=== PATIENT | female | born 1970 | race Caucasian/White ===

== ENCOUNTER 2017-01-10 21:29 | Emergency (ER) | payer OTHER ==
--- NOTE | 2017-01-10 21:42 | ED Physician Documentation ---
PD HPI LOWER EXT INJURY - Stated complaint Stated Complaint: L FOOT PX - Chief complaint Chief Complaint: Ext Problem - History obtained from History obtained from: Patient - History of Present Illness PD HPI LOW EXT INJURY LOCATION: Left (She fell yesterday, and in the process hit her left foot on a wall. She complains of pain over the medial forefoot in the arch. She is able to walk and bear weight. 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: Tubal ligation, Hysterectomy - Present Medications Home Medications: Ambulatory Orders Medication Instructions Recorded Confirmed Esomeprazole Magnesium [Nexium] 80 mg PO DAILY 01/10/17 01/10/17 Fexofenadine HCl [Sarah Allergy] 180 mg PO DAILY 01/10/17 01/10/17 Montelukast [Singulair] 10 mg PO DAILY 01/10/17 01/10/17 - Allergies Allergies/Adverse Reactions: Allergies Allergy/AdvReac Type Severity Reaction Status Date / Time iodine AdvReac Severe Hives Verified 05/11/14 21:54 Penicillins AdvReac Severe Hives Verified 05/11/14 21:53 Sulfa (Sulfonamide AdvReac Severe Hives Verified 05/11/14 21:54 Antibiotics) - Social History Does the pt smoke?: No Smoking Status: Never smoker Does the pt drink ETOH?: No Does the pt have substance abuse?: No - Immunizations Immunizations are current?: Yes PD ED PE NORMAL - Vitals Vital signs reviewed: Yes - General General: Alert and oriented X 3, No acute distress - Extremities Extremities: Other (Tenderness of the left foot seems focused in the area of the proximal dorsal and medial midfoot with some swelling there. No tenderness of the arch of the toes. No ankle or proximal fibular tenderness. There is no discoloration. Good pedal pulses.) - Neuro Neuro: Alert and oriented X 3, Normal speech - Psych Psych: Normal mood, Normal affect Results - Vitals Vitals: Vital Signs - 24 hr 01/10/17 21:31 Temperature 36.2 C L Heart Rate 93 Respiratory 18 Rate Blood Pressure 142/91 H O2 Saturation 96 Oxygen O2 Source Room air - Rads (name of study) L foot 3v Radiology: EMP read contemporaneously (Initial read was negative, I called Dr. Dupont and carlee his attention to the proximal second metatarsal on the oblique view and he agrees there may be a nondisplaced fracture there.) Procedures - Splint (location) Left foot Splint applied by: Tech Type of splint: Fiberglass, Short leg, Posterior Other: Patient tolerated well, No complications, Neurovascular intact, Crutches provided PD MEDICAL DECISION MAKING - ED course ED course: Initial read of the x-ray was negative, but I do believe after review that she probably has a nondisplaced proximal second metatarsal fracture and was placed in a splint and made nonweightbearing to follow up with orthopedics. Departure - Departure Disposition: 01 Home, Self Care Clinical Impression: Fracture of second metatarsal bone of left foot Qualifiers: Encounter type: initial encounter Fracture type: closed Fracture alignment: nondisplaced Qualified Code(s): S92.325A - Nondisplaced fracture of second metatarsal bone, left foot, initial encounter for closed fracture Condition: Good Record reviewed to determine appropriate education?: Yes Instructions: ED Fx Foot, ED Crutch Walking Comments: Call Dr. Bales's office tomorrow to arrange a follow up appointment. Do not walk or bear weight on the foot until he advises that it is safe to do so. Take the copy of the x-ray on CT with you to that appointment. Tylenol as needed for pain. Keep it elevated. Ice it through the splint. Your blood pressure was elevated today on check in to the emergency department. This does not mean that you have hypertension, it is a common phenomenon to check into the emergency department and have elevated blood pressure. I recommend that you see your primary care physician within the week to have it rechecked when you're feeling better.
--- NOTE | 2017-01-10 22:33 | XRAY Preliminary Report ---
Exam: XR Foot 3 View LT IMPRESSION: Soft tissue swelling without displaced fracture. [facility] SITE ID: [id number]
--- NOTE | 2017-01-10 22:36 | XRAY Report ---
EXAM: LEFT FOOT RADIOGRAPHY EXAM DATE: 01/10/2017 10:02 PM. CLINICAL HISTORY: Foot injury, metatarsal region pain. COMPARISON: None. TECHNIQUE: 3 views. FINDINGS: Bones: There is a large plantar calcaneal spur. No displaced fracture is answered. Subchondral cyst n oted within the distal talus. Old injury to the medial malleolus with adjacent small well-corticated ossific fragment. Joints: No dislocations. There is mild first MTP degenerative joint disease. Soft Tissues: There is moderate soft tissue swelling, predominantly about the hindfoot. Dorsal soft t issue swelling at the foot as well. IMPRESSION: Soft tissue swelling without displaced fracture. [facility] Referring Provider Line: [phone] SITE ID: [id number]
[2017-01-10 23:00] VITALS: BP 136/89
== END 2017-01-10 23:00 | disposition home or self-care (01) ==
LOC: ED 21:29
DX: S92.325A Nondisplaced fracture of second metatarsal bone, left foot, initial encounter for closed fracture (principal); W01.198A Fall on same level from slipping, tripping and stumbling with subsequent striking against other object, initial encounter; R03.0 Elevated blood-pressure reading, without diagnosis of hypertension
CPT/HCPCS: 29515; 99283

== ENCOUNTER 2017-03-19 06:07 | Day surgery (SDC) | payer OTHER ==
[2017-03-19] MEDS ORDERED: CLINDAMYCIN 600 MG/50 ML 50 ML IV ONE (06:34)
[2017-03-19] MEDS ORDERED: ACETAMINOPHEN 1,000 MG/100 ML 100 ML IV ONE (06:34)
[2017-03-19] MEDS ORDERED: LACTATED RINGERS 1,000 ML IV ONE (06:41)
[2017-03-19] MEDS ORDERED: SCOPOLAMINE PATCH TOP ONE (07:13)
[2017-03-19] MEDS ORDERED: LIDOCAINE-MPF 0.5% 50 ML VIAL IM ONE (08:00)
[2017-03-19] MEDS ORDERED: fentaNYL 100 MCG/2 ML VIAL IVP ONE (08:00)
[2017-03-19] MEDS ORDERED: MIDAZOLAM 2 MG/2 ML VIAL IVP ONE (08:00)
[2017-03-19] MEDS ORDERED: PROPOFOL 200 MG/20 ML VIAL IVP ONE (08:00)
[2017-03-19] MEDS ORDERED: oxyCOD/ACETAMIN 5 MG/325 MG TABLET PO ONE ×2 (08:51→09:28)
[2017-03-19 09:24] VITALS: BP 122/63
--- NOTE | 2017-03-22 14:38 | OPERATIVE REPORT ---
ID: [id number] DATE OF SURGERY: 03/19/2017 00:00:00 PREOPERATIVE DIAGNOSIS: Right carpal tunnel syndrome. POSTOPERATIVE DIAGNOSIS: Right carpal tunnel syndrome. NAME OF PROCEDURE: Open right carpal tunnel release. SURGEON: Shalonda Stubbs MD HEAD MVA REACTOR OPERATOR: Calderon Bales DO ANESTHESIOLOGIST: Nohemi Victoria CRNA CIRCULATING NURSE: German Tan RN MACHINE TECHNICIAN: 1. Ene Balbuena RN, BSN 2. María Metcalf CST ANESTHESIA: Neda block to right arm. INTRAVENOUS FLUIDS: 850 mL lactated Ringer's. ESTIMATED BLOOD LOSS: 1 mL. ANTIBIOTICS: Cleocin 600 mg IV. TOURNIQUET: To right arm at 275 mmHg for 41 minutes. IMPLANTS: None. SPECIMENS: None. COMPLICATIONS: None. INDICATIONS: This is a 46-year-old female with prolonged history of right median nerve numbness and tingling as well as pain that had temporary improvement with corticosteroid injection; however, symptoms returned. Risks, benefits, and indications of treatment options were discussed with the patient to include risks of surgery including infection, bleeding, damage to neurovascular structures, need for additional procedures, persistent symptoms, pillar pain, deep venous thrombosis, pulmonary embolism, loss of limb and loss of life. All questions were answered, the patient elected to proceed with surgery and informed consent was obtained. PROCEDURE: The patient was met in the preoperative holding area on the morning of surgery where we confirmed we had the correct patient, were planning to do the correct procedure, and had the correct extremity, which was the right upper extremity identified. Prior to the patient receiving any medications, the operating extremity was initialed by the surgeon. The patient was then brought back to the operating room in stable condition and placed supine on the operating room table. All bony prominences were well-padded and sequential compression devices were placed on the bilateral lower extremities. A tourniquet was applied to the right forearm and the right forearm was exsanguinated, and Anesthesia then performed a [place] block utilizing lidocaine. The right upper extremity was then prepped and draped in the usual sterile fashion. After final draping, additional ChloraPrep was utilized on the operative site. Three minutes were allowed to elapse to enable the ChloraPrep to dry. We held a surgical timeout where we confirmed we had the correct patient , planning to do the correct procedure, and had the correct extremity which was the right upper extremity identified. We also confirmed that the patient received preoperative antibiotics, that all necessary equipment was in the room and confirmed sterile, and that no members of the team had any concerns. We began by making an incision over the volar aspect of the wrist in line with the creases. After sharply incising the skin, we utilized bipolar cautery to maintain hemostasis as we dissected through the subcuticular layer. We identified the palmar fascia and sharply incised this. We then identified the transverse carpal tunnel ligament. We placed a Black underneath the transverse carpal ligament and sharply transected the transverse carpal ligament utilizing the Black to ensure that the nerve was not cut. After incising the transverse carpal ligament, we identified the median nerve, which was bulbous in appearance. We confirmed that the transverse carpal ligament had been fully released both distally and proximally. We then thoroughly irrigated the wound. We then closed the wound with 3-0 nylon in a horizontal mattress fashion. We then dressed the wound with sterile Xeroform, plain gauze, and placed the patient into a well-padded volar resting splint. All sponge counts and needle counts were correct at the conclusion of the case. The patient was taken back to the preoperative hold area after the conclusion of the case. POSTOPERATIVE PLAN: The patient will remain in her splint until she is seen back in 10 days for first postoperative appointment at which time we will remove her sutures and begin her therapy. Report edited and signed 03/29/2017 by Shalonda Stubbs MD. JOB #: [id number] EXT JOB #:[id number] [email or web address]
== END 2017-03-19 06:08 | disposition home or self-care (01) ==
LOC: SDS 06:07
PROVIDERS: ATTEND Orthopaedic Surgery
PROC: 01N50ZZ Release Median Nerve, Open Approach (ICD-10-PCS; principal; 2017-03-19 07:30)
DX: G56.01 Carpal tunnel syndrome, right upper limb (principal); K21.9 Gastro-esophageal reflux disease without esophagitis; J45.909 Unspecified asthma, uncomplicated; E66.3 Overweight; Z68.41 Body mass index [BMI] 40.0-44.9, adult
CPT/HCPCS: 64721; A9270; J0131; J3490; J7120

== ENCOUNTER 2017-04-21 20:18 | Emergency (ER) | payer OTHER ==
--- NOTE | 2017-04-21 21:08 | ED Physician Documentation ---
PD HPI HEADACHE - Stated complaint Stated Complaint: MIGRAINE - Chief complaint Chief Complaint: Neuro - History obtained from History obtained from: Patient, Family - History of Present Illness Timing - onset: Yesterday Timing - onset during: Rest Timing - duration: Days (1) Timing - details: Gradual onset Pain level max: 10 Pain level now: 10 Location: Back, Right Quality: Throbbing, Aching. No: Thunderclap Associated symptoms: Nausea, Vomiting. No: Fever, Stiff neck, Weakness, Numbness, Syncope, Seizure, Eye pain, Vision changes Improved by: Rest, Dark room Worsened by: Light, Noise, Moving Contributing factors: No: Anticoagulated, Possible carbon monoxide Similar symptoms before: Diagnosis (chronic migraines) Recently seen: Not recently seen - Additional information Additional information: similar to prior migraines. took motrin and tylenol today. Fioricet yesterday Review of Systems Ten Systems: 10 systems reviewed and negative Constitutional: denies: Fever, Chills Eyes: denies: Loss of vision, Decreased vision Ears: denies: Ear pain Nose: denies: Rhinorrhea / runny nose, Congestion Throat: denies: Sore throat Skin: denies: Rash Musculoskeletal: denies: Neck pain, Back pain Neurologic: denies: Focal weakness, Numbness, Seizure, Confused, Altered mental status, Head injury PD PAST MEDICAL HISTORY - Past Medical History Cardiovascular: None Respiratory: Asthma, Other Neuro: Headache/migraine Endocrine/Autoimmune: Other GI: GERD : None HEENT: None Psych: None Musculoskeletal: Other Derm: Other - Past Surgical History Past Surgical History: Yes General: Cholecystectomy, 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: Tubal ligation, Hysterectomy - Present Medications Home Medications: Ambulatory Orders Medication Instructions Recorded Confirmed Esomeprazole Magnesium [Nexium] 40 mg PO BID 01/10/17 04/21/17 Fexofenadine HCl [Sarah Allergy] 180 mg PO DAILY 01/10/17 04/21/17 Montelukast [Singulair] 10 mg PO DAILY 01/10/17 04/21/17 Albuterol Sulf [Ventolin Hfa 1 - 2 puffs INH Q4HR PRN 03/09/17 04/21/17 Inhaler] Fluticasone [Flonase] 1 sprays JOEL DAILY 03/09/17 04/21/17 Fluticasone/Salmeterol [Advair 1 each IH BID 03/09/17 04/21/17 250-50 Diskus] Ipratropium [Atrovent] 0.5 mg INH Q6H PRN 03/09/17 04/21/17 - Allergies Allergies/Adverse Reactions: Allergies Allergy/AdvReac Type Severity Reaction Status Date / Time iodine Allergy Severe Hives Verified 04/21/17 20:55 Penicillins Allergy Severe Hives Verified 04/21/17 20:55 Sulfa (Sulfonamide AdvReac Severe Hives Verified 04/21/17 20:55 Antibiotics) - Social History Does the pt smoke?: No Smoking Status: Never smoker Does the pt drink ETOH?: No Does the pt have substance abuse?: No - Immunizations Immunizations are current?: Yes PD ED PE NORMAL - Vitals Vital signs reviewed: Yes - General General: Alert and oriented X 3, No acute distress, Well developed/nourished, Other (darkened room, eyes closed) - HEENT HEENT: Atraumatic, PERRL, EOMI, Ears normal, Moist mucous membranes - Neck Neck: Supple, no meningeal sign, No bony TTP - Cardiac Cardiac: RRR, Strong equal pulses - Respiratory Respiratory: No respiratory distress, Clear bilaterally - Abdomen Abdomen: Soft, Non tender, Non distended - Derm Derm: Warm and dry - Extremities Extremities: No calf tenderness / cord - Neuro Neuro: Alert and oriented X 3, 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 She stated that she had had some success with Haldol in the past, therefore Haldol and Benadryl were given IM. This helped her headache, but did not resolve the symptoms, therefore an IV was started, Toradol and Compazine were given which did resolve her headache. She feels much better and would like to go home at this time. No evidence of subarachnoid hemorrhage, tumor, mass. Patient and family counseled regarding signs and symptoms for which I believe and urgent re-evaluation would be necessary. Patient with good understanding of and agreement to plan and is comfortable going home at this time This document was made in part using voice recognition software. While efforts are made to proofread this document, sound alike and grammatical errors may occur. Departure - Departure Disposition: 01 Home, Self Care Clinical Impression: Migraine Qualifiers: Migraine type: unspecified Status migrainosus presence: without status migrainosus Intractability: not intractable Qualified Code(s): G43.909 - Migraine, unspecified, not intractable, without status migrainosus Condition: Good Instructions: ED Headache Migraine Follow-Up: Eric Carter MD [Primary Care Provider] - As Needed Comments: Go home and rest today. Return if you worsen. Discharge Date/Time: 04/21/17 23:03
[2017-04-21] MEDS: HALOPERIDOL 5 MG/ML VIAL IM STA (21:18)
[2017-04-21] MEDS: diphenhydrAMINE INJ 50 MG/ML VIAL IM STA (21:22)
[2017-04-21] MEDS: KETOROLAC 60 MG/2 ML VIAL IVP STA (22:20)
[2017-04-21] MEDS ORDERED: KETOROLAC 30 MG/ML VIAL ONE (22:20)
[2017-04-21] MEDS: PROCHLORPERAZINE 10 MG/2 ML VIAL IVP STA (22:20)
[2017-04-21] MEDS ORDERED: PROCHLORPERAZINE 10 MG/2 ML VIAL ONE (22:20)
[2017-04-21 22:37] VITALS: BP 101/63
== END 2017-04-21 23:03 | disposition home or self-care (01) ==
LOC: ED 20:18
DX: G43.909 Migraine, unspecified, not intractable, without status migrainosus (principal)
CPT/HCPCS: 96372; 96374; 96375; 99283; 99284

== ENCOUNTER 2017-07-14 06:14 | Day surgery (SDC) | payer OTHER ==
[2017-07-14] MEDS ORDERED: LACTATED RINGERS 1,000 ML IV ONE ×2 (06:56→08:40)
[2017-07-14] MEDS ORDERED: CLINDAMYCIN 600 MG/50 ML 50 ML IV ONE (06:57)
[2017-07-14] MEDS ORDERED: ACETAMINOPHEN 1,000 MG/100 ML 100 ML IV ONE (06:57)
[2017-07-14] MEDS ORDERED: MIDAZOLAM 2 MG/2 ML VIAL IVP ONE (07:33)
[2017-07-14] MEDS ORDERED: fentaNYL 100 MCG/2 ML VIAL IVP ONE (07:33)
[2017-07-14] MEDS ORDERED: BUPIVACAINE 0.25% PF 30 ML VIAL SUBQ ONE ×2 (08:02)
[2017-07-14 09:13] VITALS: BP 116/89
--- NOTE | 2017-07-14 13:58 | OPERATIVE REPORT ---
DATE OF SURGERY: 07/14/2017 00:00:00 [facility] . PREOPERATIVE DIAGNOSIS: Left carpal tunnel syndrome. POSTOPERATIVE DIAGNOSIS: Left carpal tunnel syndrome. OPERATION PERFORMED: Left open carpal tunnel release. PRIMARY SURGEON: Shalonda Stubbs MD. PLASTIC MANAGER SURGEON: Dawit Chiu MD. ANESTHESIA PROVIDER: Nohemi Victoria CRNA. CIRCULATING NURSES 1. Franko Echevarria RN. 2. Calderon Victoria RN. SCRUB TECHNICIANS 1. Don Dai. 2. Gladys Valerio RN. ANESTHESIA: Neda block. INTRAVENOUS FLUIDS: 800 mL lactated Ringer's. ANTIBIOTICS: 600 mg of Cleocin. TOURNIQUET: Left forearm at 200 mmHg for 45 minutes. IMPLANTS: None. SPECIMENS: None. COMPLICATIONS: None. INDICATIONS FOR SURGERY: This is a 47-year-old female with left hand numbness, tingling, and pain that responded to treatment to include injections and night splinting. Risks, benefits, indications, and expectations of treatment options were discussed with the patient to include risk of surgery such as infection, bleeding, damage to neurovascular structures to include the median nerve, pillar pain, persistent or worsened pain, persistent symptoms, need for additional surgery, deep vein thrombosis, pulmonary embolism, loss of limb, and loss of life. All questions were answered. The patient elected to proceed with surgery and informed consent was obtained. DESCRIPTION OF PROCEDURE: The patient was met in the preoperative hold area on the morning of surgery, where we confirmed that we had the correct patient, planned to do the correct procedure, had the correct extremity, which was the left upper extremity identified. Prior to the patient receiving any medications , the operative extremity was initialed by the surgeon. The patient was then brought back to the operating room in stable condition and placed supine on the operating room table. All bony prominences were well-padded, and sequential compression devices were placed on the bilateral lower extremities. Under sedation, a left forearm Neda block was performed by Anesthesia. The left upper extremity was then prepped and draped in the usual sterile fashion. After final draping, additional ChloraPrep was utilized on the operative site, and 3 minutes were allowed to elapse to enable the ChloraPrep to dry. We held a surgical time-out, where we confirmed that we had the correct patient, planned to do the correct procedure, had the correct extremity, which was the left upper extremity identified. We also confirmed that all necessary gear was in the room and confirmed sterile, that the patient had received preoperative antibiotics and that no members of the operative team had any concerns. We began by making an incision on the volar wrist directly over the carpal tunnel. After incising the skin, we utilized bipolar cautery to dissect the subcuticular layer. We then identified the palmar fascia and carefully incised this with a knife over a [place]. We then identified the transverse carpal ligament and placed a [place] underneath the transverse carpal ligament and then utilized a knife to cut down on this to transect the transverse carpal ligament. A [place] then easily slid both proximally and distally, confirming that the carpal tunnel had been released. We then thoroughly irrigated the wound. The incision was closed utilizing 4-0 nylon in a horizontal mattress fashion. 10 mL of 0.25% Marcaine without epinephrine was then injected about the incision for local anesthesia. We then dressed the wound with sterile Xeroform, plain gauze, and Webril. The patient was then placed into a volar resting splint. All sponge counts and needle counts were correct at the conclusion of the case. The patient was taken to the PACU in stable condition. POSTOPERATIVE PLAN: The patient will remain in her splint until she is seen back in clinic in 10-14 days, at which time we will remove the splint and begin her with gentle range of motion. Report edited and signed 07/15/2017 by Shalonda Stubbs MD. JOB #: [id number] EXT JOB #:[id number] [facility]
== END 2017-07-14 06:15 | disposition home or self-care (01) ==
LOC: SDS 06:14
PROVIDERS: ATTEND Orthopaedic Surgery
PROC: 01N50ZZ Release Median Nerve, Open Approach (ICD-10-PCS; 2017-07-14)
PROC: 01N50ZZ Release Median Nerve, Open Approach (ICD-10-PCS; principal; 2017-07-14 07:30)
DX: G56.02 Carpal tunnel syndrome, left upper limb (principal)
CPT/HCPCS: 64721; J0131; J7120

== ENCOUNTER 2018-03-08 20:42 | Emergency (ER) | payer OTHER ==
[2018-03-08 23:09] LABS: BILIRUBIN,URINE NEGATIVE (NEGATIVE); GLUCOSE, URINE (UA) NEGATIVE (NEGATIVE); KETONES,URINE (UA) NEGATIVE (NEGATIVE); LEUKOCYTE ESTERASE, URINE NEGATIVE (NEGATIVE); NITRITE,URINE NEGATIVE (NEGATIVE); OCCULT BLOOD,URINE NEGATIVE (NEGATIVE); PROTEIN,URINE NEGATIVE (NEGATIVE); UROBILINOGEN,URINE 0.2 (NORMAL) E.U./dL (NORMAL)
[2018-03-08 23:11] LABS: BASOPHILS # (AUTO) 0.1 10^3/uL (0.0-0.1); BASOPHILS % (AUTO) 1.2 %; EOSINOPHILS # (AUTO) 0.3 10^3/uL (0.0-0.7); EOSINOPHILS % (AUTO) 4.6 %; HGB - HEMOGLOBIN 14.6 g/dL (12.0-16.0); LYMPHOCYTES # (AUTO) 2.7 10^3/uL (1.5-3.5); LYMPHOCYTES % (AUTO) 35.7 %; MEAN CORPUSCULAR HEMOGLOBIN 31.4 pg (27.0-31.0); MEAN CORPUSCULAR HGB CONC 34.2 g/dL (32.0-36.0); MEAN PLATELET VOLUME 9.1 fL (7.9-10.8); MONOCYTES # (AUTO) 0.8 10^3/uL (0.0-1.0); MONOCYTES % (AUTO) 10.7 %; NEUTROPHILS # (AUTO) 3.6 10^3/uL (1.5-6.6); NEUTROPHILS % (AUTO) 47.8 %; PLT - PLATELET COUNT 288 10^3/uL (130-450); RED BLOOD COUNT 4.63 10^6/uL (4.20-5.40); RED CELL DISTRIBUTION WIDTH 13.2 % (12.0-15.0); WHITE BLOOD COUNT 7.4 x10^3/uL (4.8-10.8)
[2018-03-08 23:14] LABS: CLARITY,URINE CLEAR (CLEAR)
[2018-03-08 23:24] LABS: ALBUMIN 4.4 g/dL (3.2-5.5); ALBUMIN/GLOBULIN RATIO 1.3 (1.0-2.2); BILIRUBIN,TOTAL 0.8 mg/dL (0.2-1.0); CALCIUM 9.4 mg/dL (8.5-10.3); CREATININE 0.8 mg/dL (0.4-1.0); TOTAL PROTEIN 7.7 g/dL (6.7-8.2)
--- NOTE | 2018-03-09 01:02 | ED Physician Documentation ---
History of Present Illness - Stated complaint Stated Complaint: SYNCOPE - Chief complaint Chief Complaint: Neuro - History obtained from History obtained from: Patient - Additonal information Additional information: 47-year-old female presents the emergency department for a near syncopal episode which occurred today. The patient was walking and became lightheaded and developed tunnel vision. The patient was able to regain awareness While falling. The patient did strike her knee and twisted her ankle. The patient denies injury to her head, neck or torso. The patient denies chest pain, palpitations, dyspnea before or after the event. Presently the patient has no chest pain dyspnea or shortness of breath. Symptoms were described as moderate. No triggering factors. No relieving factors. Review of Systems Constitutional: denies: Fever Eyes: denies: Discharge Ears: denies: Ear pain Nose: denies: Congestion Cardiac: reports: Chest pain / pressure, Palpitations Respiratory: denies: Hemoptysis GI: denies: Abdominal Pain : denies: Dysuria Musculoskeletal: reports: Joint pain. denies: Neck pain, Back pain, Joint swelling Neurologic: reports: Syncope. 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, Other - Present Medications Home Medications: Ambulatory Orders Medication Instructions Recorded Confirmed Esomeprazole Magnesium [Nexium] 40 mg PO BID 01/10/17 07/14/17 Fexofenadine HCl [Sarah Allergy] 180 mg PO DAILY 01/10/17 07/14/17 Montelukast [Singulair] 10 mg PO DAILY 01/10/17 07/14/17 Albuterol Sulf [Ventolin Hfa 1 - 2 puffs INH Q4HR PRN 03/09/17 07/14/17 Inhaler] Fluticasone [Flonase] 1 sprays JOEL DAILY 03/09/17 07/14/17 Fluticasone/Salmeterol [Advair 1 each IH BID 03/09/17 07/14/17 250-50 Diskus] Ipratropium [Atrovent] 0.5 mg INH Q6H PRN 03/09/17 07/14/17 - Allergies Allergies/Adverse Reactions: Allergies Allergy/AdvReac Type Severity Reaction Status Date / Time iodine Allergy Severe Hives Verified 03/08/18 21:01 Penicillins Allergy Severe Hives Verified 03/08/18 21:01 Sulfa (Sulfonamide AdvReac Severe Hives Verified 03/08/18 21:01 Antibiotics) - Social History Does the pt smoke?: No Smoking Status: Never smoker Does the pt drink ETOH?: No Does the pt have substance abuse?: No - Immunizations Immunizations are current?: Yes PD ED PE NORMAL - General General: Alert and oriented X 3, No acute distress - HEENT HEENT: Atraumatic, PERRL, EOMI, Ears normal, Moist mucous membranes - Neck Neck: Supple, no meningeal sign - Cardiac Cardiac: RRR, Strong equal pulses - Respiratory Respiratory: No respiratory distress, Clear bilaterally - Abdomen Abdomen: Normal bowel sounds, Non tender - Derm Derm: Other (Abrasion on the left knee) - Extremities Extremities: No deformity, Other (The patient has tenderness in her left knee, there is a abrasion, no laceration or joint effusion the patient has normal range of motion of the knee. The patient has tenderness of the left ankle with mild lateral edema. The patient has no tenderness of the fibular head or in the foot. No pain in the hip. Normal dorsalis pedis pulse. Brisk cap refill) - Neuro Neuro: Alert and oriented X 3, No motor deficit, Normal speech - Psych Psych: Normal mood Results - Vitals Vitals: Vital Signs - 24 hr 03/08/18 03/09/18 20:57 00:56 Temperature 36.2 C L Heart Rate 94 61 Respiratory 20 20 Rate Blood Pressure 134/84 H 126/84 H O2 Saturation 96 94 Oxygen O2 Source Room air - EKG (time done) No standard instances Rate: Rate (enter#) (81 beats a minute) Rhythm: NSR Intervals: Normal ME, QRS normal QRS: Normal Ischemia: Normal ST segments Other comments: Other comments (No acute ischemic changes) - Labs Labs: Laboratory Tests 03/08/18 03/08/18 03/08/18 21:04 22:48 23:03 WBC RBC Hgb Hct MCV MCH MCHC RDW Plt Count MPV Neut # (Auto) Lymph # (Auto) Humphreys # (Auto) Eos # (Auto) Baso # (Auto) Absolute Nucleated RBC Nucleated RBC % Sodium Potassium Chloride Carbon Dioxide Anion Gap BUN Creatinine Estimated GFR (MDRD) Glucose POC Whole Bld Glucose 193 H 128 H Calcium Total Bilirubin AST ALT Alkaline Phosphatase Troponin I Total Protein Albumin Globulin Albumin/Globulin Ratio Lipase Urine Color YELLOW Urine Clarity CLEAR Urine pH 6.0 Ur Specific [place] >=1.030 H Urine Protein NEGATIVE Urine Glucose (UA) NEGATIVE Urine Ketones NEGATIVE Urine Occult Blood NEGATIVE Urine Nitrite NEGATIVE Urine Bilirubin NEGATIVE Urine Urobilinogen 0.2 (NORMAL) Ur Leukocyte Esterase NEGATIVE Ur Microscopic Review NOT INDICATED Urine Culture Comments NOT INDICATED 03/08/18 03/08/18 03/08/18 23:07 23:07 23:07 WBC 7.4 RBC 4.63 Hgb 14.6 Hct 42.7 MCV 92.0 MCH 31.4 H MCHC 34.2 RDW 13.2 Plt Count 288 MPV 9.1 Neut # (Auto) 3.6 Lymph # (Auto) 2.7 Humphreys # (Auto) 0.8 Eos # (Auto) 0.3 Baso # (Auto) 0.1 Absolute Nucleated RBC 0.00 Nucleated RBC % 0.1 Sodium 139 Potassium 3.4 L Chloride 105 Carbon Dioxide 25 Anion Gap 9.0 BUN 12 Creatinine 0.8 Estimated GFR (MDRD) 77 L Glucose 113 H POC Whole Bld Glucose Calcium 9.4 Total Bilirubin 0.8 AST 50 H ALT 73 H Alkaline Phosphatase 50 Troponin I < 0.04 Total Protein 7.7 Albumin 4.4 Globulin 3.3 Albumin/Globulin Ratio 1.3 Lipase 32 Urine Color Urine Clarity Urine pH Ur Specific [place] Urine Protein Urine Glucose (UA) Urine Ketones Urine Occult Blood Urine Nitrite Urine Bilirubin Urine Urobilinogen Ur Leukocyte Esterase Ur Microscopic Review Urine Culture Comments - Rads (name of study) CXR Radiology: Final report received (No acute disease) Ankle/KNEE Radiology: Final report received (No fracture or dislocation of either the knee or ankle. Soft tissue swelling of the ankle) PD MEDICAL DECISION MAKING - ED course ED course: The patient's workup does not reveal any significant abnormality that would necessitate admission to the hospital and the patient appears appropriate for discharge and further workup as an outpatient. I discussed with the patient the findings and plan for outpatient management. The patient is comfortable with this plan. I advised that the patient would benefit from a Holter monitor and echocardiogram. The patient understands and agrees. I discussed warning signs and recommended returning to the emergency department immediately for worsening or any concerns. - Sepsis Event Vital Signs: Vital Signs - 24 hr 03/08/18 03/09/18 20:57 00:56 Temperature 36.2 C L Heart Rate 94 61 Respiratory 20 20 Rate Blood Pressure 134/84 H 126/84 H O2 Saturation 96 94 Oxygen O2 Source Room air Departure - Departure Disposition: 01 Home, Self Care Clinical Impression: Syncope Qualifiers: Syncope type: unspecified Qualified Code(s): R55 - Syncope and collapse Knee contusion Qualifiers: Encounter type: initial encounter Laterality: unspecified laterality Qualified Code(s): S80.00XA - Contusion of unspecified knee, initial encounter Ankle sprain Qualifiers: Encounter type: initial encounter Involved ligament of ankle: unspecified ligament Laterality: unspecified laterality Qualified Code(s): S93.409A - Sprain of unspecified ligament of unspecified ankle, initial encounter Condition: Good Instructions: Syncope, ED Sprain Ankle W X Ray, ED Contusion Lower Ext Follow-Up: DANIEL GRIMALDO, [Primary Care Provider] - Within 1 week (Please ask your primary care physician to arrange for an outpatient echocardiogram and Holter monitor to further workup and evaluate your symptoms) Comments: Please return to the emergency department for worsening symptoms or any concerns
--- NOTE | 2018-03-09 01:37 | XRAY Report ---
Procedure Date: 03/09/2018 Accession Number: [id number] / [id number] Procedure: XR - Ankle 3 View LT CPT Code: FULL RESULT: EXAM: LEFT ANKLE RADIOGRAPHY EXAM DATE: 03/09/2018 01:12 AM. CLINICAL HISTORY: Ankle pain. COMPARISON: ANKLE 3 VIEW LT 05/11/2014 FOOT 3 VIEW LT 01/10/2017. TECHNIQUE: 3 views. FINDINGS: Bones: Lytic focus in the lateral malleolus, probably unchanged compared with 01/10/2017. Old-appearing ossicle at the medial malleolus. No acute fracture seen. Plantar calcaneal osteophyte. Joints: No dislocation seen. Ankle mortise appears intact. No ankle joint effusion identified. Soft Tissues: Soft tissue swelling. IMPRESSION: 1. Soft tissue swelling and chronic bone changes. 2. No acute fracture or dislocation seen. RADIA
--- NOTE | 2018-03-09 01:38 | XRAY Report ---
Procedure Date: 03/09/2018 Accession Number: [id number] / [id number] Procedure: XR - Chest 2 View X-Ray CPT Code: 66125 FULL RESULT: EXAM: CHEST RADIOGRAPHY EXAM DATE: 03/09/2018 01:14 AM. CLINICAL HISTORY: Syncope. COMPARISON: XR ACUTE ABDOMEN SERIES 07/08/2008. TECHNIQUE: 2 views. FINDINGS: Lungs/Pleura: No alveolar consolidation or pleural effusion seen. No pneumothorax. Mediastinum: Heart and mediastinal contours are unremarkable. Other: None. IMPRESSION: 1. No acute abnormality seen in the chest. RADIA
--- NOTE | 2018-03-09 01:40 | XRAY Report ---
Procedure Date: 03/09/2018 Accession Number: [id number] / [id number] Procedure: XR - Knee 4 View LT CPT Code: FULL RESULT: EXAM: LEFT KNEE RADIOGRAPHY EXAM DATE: 03/09/2018 01:16 AM. CLINICAL HISTORY: Knee pain. COMPARISON: None. TECHNIQUE: 4 views. FINDINGS: Bones: No fracture seen. Joints: No dislocation. Joint spaces appear intact. No joint effusion identified. Soft Tissues: Mild soft tissue swelling. IMPRESSION: 1. No acute osseous abnormality. RADIA
[2018-03-09 02:05] VITALS: BP 124/76
== END 2018-03-09 02:06 | disposition home or self-care (01) ==
LOC: ED 20:42
DX: R55 Syncope and collapse (principal); S80.02XA Contusion of left knee, initial encounter; S93.402A Sprain of unspecified ligament of left ankle, initial encounter; M25.472 Effusion, left ankle; E11.9 Type 2 diabetes mellitus without complications; X50.1XXA Overexertion from prolonged static or awkward postures, initial encounter; Y93.01 Activity, walking, marching and hiking
CPT/HCPCS: 36415; 71046; 80053; 81001; 81003; 83690; 84484; 85025; 87086; 93005; 99283; 99284

== ENCOUNTER 2021-06-06 07:00 | Outpatient (CLI) | payer OTHER | END 2021-06-06 23:59 | disposition home or self-care (01) | LOC: LAB 07:00 | PROVIDERS: ATTEND Family Medicine | DX: U07.1 COVID-19 (principal) ==

== ENCOUNTER 2022-08-14 08:00 | Outpatient (CLI) | payer OTHER | END 2022-08-14 23:59 | disposition home or self-care (01) | LOC: LAB 08:00 | PROVIDERS: ATTEND Nurse Practitioner | DX: R31.9 Hematuria, unspecified (principal) | CPT/HCPCS: 87086 ==

== ENCOUNTER 2022-08-15 09:34 | Outpatient (CLI) | payer OTHER ==
[2022-08-15 19:14] LABS: BASOPHILS # (AUTO) 0.1 10^3/uL (0.0-0.1); BASOPHILS % (AUTO) 0.7 %; EOSINOPHILS # (AUTO) 0.3 10^3/uL (0.0-0.7); EOSINOPHILS % (AUTO) 3.5 %; HCT - HEMATOCRIT 42.8 % (37.0-47.0); HGB - HEMOGLOBIN 13.8 g/dL (12.0-16.0); LYMPHOCYTES # (AUTO) 1.7 10^3/uL (1.5-3.5); LYMPHOCYTES % (AUTO) 22.8 %; MEAN CORPUSCULAR HEMOGLOBIN 29.7 pg (27.0-31.0); MEAN CORPUSCULAR HGB CONC 32.2 g/dL (32.0-36.0); MEAN CORPUSCULAR VOLUME 92.2 fL (81.0-99.0); MEAN PLATELET VOLUME 11.8 fL (7.9-10.8); MONOCYTES # (AUTO) 0.6 10^3/uL (0.0-1.0); MONOCYTES % (AUTO) 8.7 %; NEUTROPHILS # (AUTO) 4.7 10^3/uL (1.5-6.6); NEUTROPHILS % (AUTO) 63.9 %; PLT - PLATELET COUNT 300 10^3/uL (130-450); RED BLOOD COUNT 4.64 10^6/uL (4.20-5.40); RED CELL DISTRIBUTION WIDTH 12.3 % (12.0-15.0); WHITE BLOOD COUNT 7.3 x10^3/uL (4.8-10.8)
[2022-08-15 19:28] LABS: ALBUMIN 3.7 g/dL (3.2-5.5); ALBUMIN/GLOBULIN RATIO 0.9 (1.0-2.2); ALKALINE PHOSPHATASE 70 IU/L (42-121); ALT ALANINE AMINOTRANSFERASE 21 IU/L (10-60); AST ASPARTATE AMINOTRANSFERASE 20 IU/L (10-42); BUN - BLOOD UREA NITROGEN 14 mg/dL (6-20); CARBON DIOXIDE - CO2 27 mmol/L (21-32); CHLORIDE 98 mmol/L (101-111); CHOL/HDL RATIO 4.9 (<4.4); CHOLESTEROL 156 mg/dL; CREATININE 0.7 mg/dL (0.4-1.0); GFR - MDRD 88 (>89); GLUCOSE 277 mg/dL (70-100); HDL CHOLESTEROL 32 mg/dL; LDL CHOLESTEROL,CALCULATED 102 mg/dL; LDL/HDL RATIO 3.2 (<4.4); POTASSIUM 3.9 mmol/L (3.5-5.0); SODIUM 136 mmol/L (135-145); TOTAL PROTEIN 7.8 g/dL (6.7-8.2); TRIGLYCERIDES 111 mg/dL; VLDL CHOLESTEROL 22 mg/dL
== END 2022-08-15 09:35 | disposition home or self-care (01) ==
LOC: LAB.N 09:34
PROVIDERS: ATTEND Nurse Practitioner
DX: R31.9 Hematuria, unspecified (principal)
CPT/HCPCS: 36415; 80053; 80061; 83721; 85025; 87086

== ENCOUNTER 2023-09-15 12:30 | Emergency (ER) | payer OTHER ==
--- NOTE | 2023-09-15 14:15 | XRAY Report ---
PROCEDURE: Chest 2V INDICATIONS: cough/congestion TECHNIQUE: 2 views of the chest were acquired. COMPARISON: Chest x-ray 03/09/2018 FINDINGS: Surgical changes and devices: None. Lungs and pleura: No pleural effusions or pneumothorax. Lungs are clear. Mediastinum: Mediastinal contours appear normal. Heart size is normal. Bones and chest wall: No suspicious bony lesions. Overlying soft tissues appear unremarkable. IMPRESSION: No acute cardiopulmonary process. Reviewed by: Mimi Rausch MD on 09/15/2023 2:14 PM PST Approved by: Mimi Rausch MD on 09/15/2023 2:14 PM PST Station ID: [id number]
[2023-09-15] MEDS ORDERED: IPRATROPIUM/ALBUTEROL 3 ML NEB INH STA (14:58)
[2023-09-15] MEDS ORDERED: predniSONE 20 MG TABLET PO STA (14:58)
[2023-09-15] MEDS ORDERED: ALBUTEROL NEB 2.5 MG/3 ML INH STA (15:19)
--- NOTE | 2023-09-15 15:29 | ED Physician Documentation ---
PD HPI DYSPNEA - Stated complaint Stated Complaint: SOA/COUGH - Chief complaint Chief Complaint: Resp - History obtained from History obtained from: Patient - Additional information Additional information: Patient is a 53-year-old female with a history of asthma and diabetes presenting for evaluation of cough, congestion and shortness of air for the past 3 weeks. Patient states that she has had a productive cough of clear thick sputum. She has been using her albuterol inhaler as well as Singulair. She did see her PCP and was given a weeks course of methylprednisolone 4 mg with a starting dose being at 24 mg and then tapering down. She was also on a course of azithromycin without any improvement in her symptoms. She has had negative COVID and strep test. She went to see her PCP today again for follow-up and they noted that she was wheezing and recommended she come to the emergency department for evaluation. 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, Other - Present Medications Home Medications: Ambulatory Orders Medication Instructions Recorded Confirmed Esomeprazole Magnesium [Nexium] 40 mg PO BID 01/10/17 07/14/17 Fexofenadine HCl [Sarah Allergy] 180 mg PO DAILY 01/10/17 07/14/17 Montelukast [Singulair] 10 mg PO DAILY 01/10/17 07/14/17 Albuterol Sulf [Ventolin Hfa 1 - 2 puffs INH Q4HR PRN 03/09/17 07/14/17 Inhaler] Fluticasone [Flonase] 1 sprays JOEL DAILY 03/09/17 07/14/17 Fluticasone/Salmeterol [Advair 1 each IH BID 03/09/17 07/14/17 250-50 Diskus] Ipratropium [Atrovent] 0.5 mg INH Q6H PRN 03/09/17 07/14/17 Albuterol 2.5 mg INH Q4H PRN #30 ml 09/15/23 Nebulizer Accessories [Adult 1 each MC PRN PRN #1 each 09/15/23 Aerosol Mask] Nebulizer Accessories [Wing Tip 1 each MC PRN PRN #1 each 09/15/23 Tubing] Nebulizer and Compressor 1 each MC PRN PRN #1 ea 09/15/23 [Compressor Nebulizer System] predniSONE [Deltasone] 60 mg PO DAILY 4 Days #12 tablet 09/15/23 - Allergies Allergies/Adverse Reactions: Allergies Allergy/AdvReac Type Severity Reaction Status Date / Time iodine Allergy Severe Hives Verified 03/08/18 21:01 Penicillins Allergy Severe Hives Verified 03/08/18 21:01 metoclopramide Allergy Hives Verified 09/15/23 12:33 Sulfa (Sulfonamide AdvReac Severe Hives Verified 03/08/18 21:01 Antibiotics) - Social History Does the pt smoke?: No Smoking Status: Never smoker Does the pt drink ETOH?: No Does the pt have substance abuse?: No - Immunizations Immunizations are current?: Yes PD ED PE NORMAL - General General: Alert and oriented X 3, No acute distress, Well developed/nourished - HEENT HEENT: Atraumatic, Moist mucous membranes, Pharynx benign - Neck Neck: Supple, no meningeal sign - Cardiac Cardiac: RRR, Strong equal pulses - Respiratory Respiratory: No respiratory distress, Other (Wheezing, coarse breath sounds) - Derm Derm: Warm and dry - Neuro Neuro: Normal speech Results - Vitals Vitals: Vital Signs - 24 hr 09/15/23 09/15/23 09/15/23 12:33 15:25 16:26 Temperature 36.8 C Heart Rate 85 80 82 Respiratory 16 20 20 Rate Blood Pressure 139/81 H 136/73 H O2 Saturation 99 97 Oxygen O2 Source Room air PD Medical Decision Making - ED course Complexity details: reviewed results, re-evaluated patient ED course: Patient is a 53-year-old female presenting for evaluation of cough, congestion for the past 3 weeks. She is wheezing on exam. Chest x-ray which I reviewed shows no consolidation or pneumonia. She has had outpatient testing for COVID. Given the duration of her symptoms I do not think flu testing will be particularly helpful. Patient did receive 2 nebulized breathing treatments with improvement in her symptoms. She does have a history of diabetes and we discussed a trial of prednisone which she is agreeable to. She had been on outpatient course of steroids but this was a low-dose. She understands importance of keeping an eye on her blood sugars. She understands concerning symptoms to return for. Departure - Departure Disposition: 01 Home, Self Care Clinical Impression: Asthma exacerbation Condition: Stable Instructions: ED Bronchitis Asthmatic Prescriptions: Nebulizer Accessories [Adult Aerosol Mask] 1 each MC PRN PRN #1 each PRN Reason: Wheezing Albuterol 2.5 mg INH Q4H PRN #30 ml PRN Reason: Wheezing Nebulizer and Compressor [Compressor Nebulizer System] 1 each MC PRN PRN #1 ea PRN Reason: Wheezing predniSONE [Deltasone] 60 mg PO DAILY 4 Days #12 tablet Nebulizer Accessories [Wing Tip Tubing] 1 each MC PRN PRN #1 each PRN Reason: Wheezing Comments: Your chest x-ray does not show signs of pneumonia. You were given 2 breathing treatments here which seem to have helped and I have also started you on a higher dose of prednisone. I have sent a prescription for the prednisone as well as Nebulized albuterol and nebulizer and its components to [facility] in [place]. Please complete the course of prednisone. Return to the ER with any worsening. Forms: PCP List Discharge Date/Time: 09/15/23 16:27
[2023-09-15 16:35] VITALS: BP 136/73; O2SAT 97
== END 2023-09-15 16:27 | disposition home or self-care (01) ==
LOC: ED 12:30
DX: J45.901 Unspecified asthma with (acute) exacerbation (principal); E11.9 Type 2 diabetes mellitus without complications
CPT/HCPCS: 71046; 94640; 99284; J7512

== ENCOUNTER 2024-01-31 08:44 | Outpatient (CLI) | payer OTHER ==
--- NOTE | 2024-02-01 10:24 | Mammography Report ---
BILATERAL DIGITAL DIAGNOSTIC MAMMOGRAM 3D/2D: 01/31/2024 CLINICAL: Bloody nipple discharge left breast. Due for bilateral exam. Comparison is made to exams dated: 11/27/2022 mammogram, 11/03/2017 mammogram, and 01/02/2015 mammogram - [facility]. There are scattered areas of fibroglandular density in both breasts (category b / 25%-50% glandular t issue). There is an 8 mm oval equal density asymmetry in the left breast at 11 o'clock middle depth. This is seen in additional views. This is more prominent. No other significant masses, calcifications, or other findings are seen in either breast. Mammograms are otherwise stable. IMPRESSION: INCOMPLETE: NEEDS ADDITIONAL IMAGING EVALUATION The 8 mm oval equal density asymmetry in the left breast possibly explains the nipple discharge, but remains indeterminate. An ultrasound is recommended. This was performed immediately following this e xam. Based on the Tyrer Cuzick model (a risk assessment model) the patient's lifetime risk is 8.8% and her 10 year risk is 2.4%. According to the ACR, ACS, and NCCN guidelines, an annual breast MRI exam kandice g with mammogram is recommended if the patient's lifetime risk is 20% or greater. This exam was interpreted at Station ID: [id number]. NOTE: For mammograms, a report in lay terms will be sent to the patient. Approximately 15% of breast malignancies will not be visualized mammographically. In the management of a palpable breast mass, a negative mammogram must not discourage biopsy of a clinically suspicious lesion. Electronically Signed By: Ghazala newberry/:01/31/2024 10:31:14 ACR BI-RADS Category 0: Incomplete 3340F PARENCHYMAL PATTERN: (A) - The breast(s) demonstrate(s) scattered fibroglandular densities. BI-RADS CATEGORY: (0) - 0 Ultrasound [id number] Immediate follow-up LATERALITY: (B)
--- NOTE | 2024-02-01 10:24 | Ultrasound Report ---
LIMITED ULTRASOUND OF LEFT BREAST AND AXILLA: 01/31/2024 CLINICAL: Bloody nipple discharge left breast. Comparison is made to exams dated: 01/31/2024 mammogram - [facility], 11/27/2022 mamm ogram, 11/03/2017 mammogram, and 01/02/2015 [address] - [facility]. Color flow ultrasound of the left breast retroareolar and axilla regions was performed. Ness scale images of the real-time examination were reviewed. There is a 0.8 cm x 0.8 cm x 0.5 cm oval mass with a microlobulated margin in the left breast at 10 o 'clock anterior depth. This correlates with mammography findings and the nipple discharge. Color fl ow imaging demonstrates that there is increased vascularity. No dilated ducts seen. No significant abnormalities were seen sonographically in the left axilla. IMPRESSION: SUSPICIOUS OF MALIGNANCY The 0.8 cm x 0.8 cm x 0.5 cm oval mass in the left breast is at a low suspicion for malignancy. An u ltrasound guided biopsy is recommended. Findings and recommendations were discussed with the patient in person by Dr. Leslie at time of exam. This exam was interpreted at Station ID: [id number]. Electronically Signed By: Ghazala newberry/:01/31/2024 10:35:36 Ultrasound BI-RADS: 4a Low suspicion for malignancy BI-RADS CATEGORY: (4a) - Low Susp Biopsy [id number] Immediate follow-up LATERALITY: (L)
== END 2024-01-31 08:45 | disposition home or self-care (01) ==
LOC: DI 08:44
PROVIDERS: ATTEND Physician Assistant
DX: N63.22 Unspecified lump in the left breast, upper inner quadrant (principal); N64.52 Nipple discharge; R92.323 Mammographic fibroglandular density, bilateral breasts